=== PATIENT | male | born 1950 | race Caucasian/White ===

== ENCOUNTER 2021-09-05 08:06 | Emergency (ER) | payer MEDICAID ==
[~2021-09-05] VITALS: Ht 170.2 cm; Wt 102.5 kg
[2021-09-05 08:48] VITALS: BP 135/58
--- NOTE | 2021-09-05 09:00 | NUR ---
BIBS FOR C/O FEVER X 6 DAYS. WILL CONTINUE TO MONITOR THE PATIENT
--- NOTE | 2021-09-05 09:20 | NUR ---
COVID SWAB DONE AND SENT
--- NOTE | 2021-09-05 09:20 | NUR ---
PATIENT SERVICES CLERK AT BEDSIDE
[2021-09-05] MEDS ORDERED: AZIT250T PO (11:06)
[2021-09-05] MEDS ORDERED: ALBU8.5H8 INH (11:06)
--- NOTE | 2021-09-05 11:32 | NUR ---
Patient discharged to home in stable condition. Written and verbal after care instructions given. Patient verbalizes understanding of instruction.
== END 2021-09-05 11:33 | disposition home or self-care (01) ==
LOC: ER 08:11
DX: U07.1 COVID-19 (principal); J44.9 Chronic obstructive pulmonary disease, unspecified; J98.11 Atelectasis; I51.7 Cardiomegaly
CPT/HCPCS: 71045; 87426; 99284; C9803

== ENCOUNTER 2021-09-10 11:00 | Emergency (ER) | payer MEDICAID ==
[~2021-09-10] VITALS: Ht 170.2 cm; Wt 102.5 kg
[~2021-09-10 11:00] MED LIST: ALBU8.5H8 INH; AZIT250T PO
[2021-09-10 11:20] VITALS: BP 150/87
[2021-09-10] MEDS ORDERED: DEXA4TAB PO (11:28)
--- NOTE | 2021-09-10 12:08 | NUR ---
Patient discharged to home in stable condition. Written and verbal after care instructions given. Patient verbalizes understanding of instruction.
== END 2021-09-10 12:09 | disposition home or self-care (01) ==
LOC: ER 11:04
DX: U07.1 COVID-19 (principal); J44.9 Chronic obstructive pulmonary disease, unspecified; Z79.2 Long term (current) use of antibiotics; Z79.899 Other long term (current) drug therapy